=== PATIENT | female | born 1965 | race Caucasian/White ===

== ENCOUNTER 2019-12-19 13:56 | Emergency (ER) | payer OTHER ==
[2019-12-19 14:08] VITALS: BP 142/84; PULSE 79; O2SAT 98
--- NOTE | 2019-12-19 14:24 | ERPHSYRPT ---
- History of Present Illness Time Seen by Provider: 12/19/19 14:10 Source: patient Exam Limitations: no limitations Patient Subjective Stated Complaint: Pt states "I was feeding my dogs and I bent over to rocha his bowl and kept on going, my last two fingers on my right hand bent backwars and now I can barely make a fist." Triage Nursing Assessment: Pt presented alert and oriented X 3, skin pwd Pt ambulates with an upright steady gait, able to speak in clear full sentences pt in no apparent respiratory distress. Pt 3rd and 4th digit on right hand tender to touch. Physician History: Patient is a 54-year-old female presents to our ED with complaints of pain to her fourth and fifth MCP. Patient was feeling her dog dogs water ball when she stretched her hand out to support herself and hyperextended her fourth and fifth digits. Patient has a history of right wrist fusion. Patient's pain described as an ache that is well localized. No radiation. Pain rated 6 out of 10. Patient declined pain medication. Occurred: just prior to arrival Method of Injury: unknown Quality: constant Severity of Pain-Max: moderate Severity of Pain-Current: mild Extremities Pain Location: hand: right Modifying Factors: Improves With: movement Associated Symptoms: none Allergies/Adverse Reactions: sitagliptin [From Januvia] Allergy (Intermediate, Verified 12/19/19 14:10) Itching aspirin Allergy (Verified 10/21/15 02:46) ceftriaxone sodium [From Rocephin] Allergy (Verified 10/21/15 02:47) Latex, Natural Rubber Allergy (Verified 10/21/15 02:46) morphine Allergy (Verified 10/21/15 02:47) Sulfa (Sulfonamide Antibiotics) Allergy (Verified 10/21/15 02:47) metformin Adverse Reaction (Mild, Verified 12/19/19 14:10) Diarrhea steroids Adverse Reaction (Uncoded 10/21/15 02:46) Home Medications: Calcium 1,250 mg PO DAILY 10/21/15 [History] Levothyroxine Sodium 125 mg PO DAILY 10/21/15 [History] Armstrong-3 Fatty Acids/Fish Oil [Fish Oil 1,000 mg Softgel] 1 tab PO TID 10/21/15 [History] Pravastatin Sodium 40 mg PO DAILY 10/21/15 [History] Ranitidine HCl 300 mg PO DAILY 10/21/15 [History] lisinopriL [Lisinopril] 20 mg PO DAILY 10/21/15 [History] Hx Tetanus, Diphtheria Vaccination/Date Given: Yes Hx Influenza Vaccination/Date Given: No Hx Pneumococcal Vaccination/Date Given: No Immunizations Up to Date: Yes Travel Risk - International Travel Have you traveled outside of the country in past 3 weeks: No - Coronavirus Screening Are you exhibiting any of the following symptoms?: No Close contact with a COVID-19 positive Pt in past 14-21 Days: No - Review of Systems Constitutional: No Symptoms, No Fever, No Chills Eyes: No Symptoms Ears, Nose, & Throat: No Symptoms Respiratory: No Symptoms, No Cough, No Dyspnea Cardiac: No Symptoms, No Chest Pain, No Edema, No Syncope Abdominal/Gastrointestinal: No Symptoms, No Abdominal Pain, No Nausea, No Vomiting, No Diarrhea Genitourinary Symptoms: No Symptoms, No Dysuria Musculoskeletal: No Symptoms, No Back Pain, No Neck Pain Skin: No Symptoms, No Rash Neurological: No Symptoms, No Dizziness, No Focal Weakness, No Sensory Changes Psychological: No Symptoms Endocrine: No Symptoms Hematologic/Lymphatic: No Symptoms Immunological/Allergic: No Symptoms All Other Systems: Reviewed and Negative - Past Medical History Pertinent Past Medical History: Yes Neurological History: Other Cardiac History: High Cholesterol, Hypertension Respiratory History: Asthma, Sleep Apnea Endocrine Medical History: Diabetes Type II, Hypothyroidism, Thyroid Cancer Musculoskeletal History: Fractures, Other Other Medical History: Brittle Bone Syndrome, Thyroid cancer (s/p total removal), Essential Tremors (brain stimulator placement August 2018), awaiting delivery of CPAP - Past Surgical History Past Surgical History: Yes Other Surgical History: right hand surgery laparaoscopy folow by exploratory with colostomy then reversal due to peritonitis - Social History Smoking Status: Current every day smoker How long have you smoked: years Exposure to second hand smoke: Yes Drug Use: none Patient Lives Alone: No - Female History Hx Now: No - Nursing Vital Signs Nursing Vital Signs: Initial Vital Signs Temperature 98.2 F 12/19/19 14:02 Pulse Rate 79 12/19/19 14:02 Respiratory Rate 20 12/19/19 14:02 Blood Pressure 142/84 12/19/19 14:02 O2 Sat by Pulse Oximetry 98 12/19/19 14:02 Pain Scale Pain Intensity 6 - Physical Exam General Appearance: no apparent distress, alert Eyes, Ears, Nose, Throat Exam: moist mucous membranes Neck Exam: non-tender, supple Cardiovascular/Respiratory Exam: chest non-tender, normal breath sounds, regular rate/rhythm, no respiratory distress Abdominal Exam: non-tender, No guarding Back Exam: normal inspection, No vertebral tenderness Shoulder Exam: normal inspection Elbow/Forearm Exam: normal inspection Wrist Exam: normal inspection (Well-healed scar from previous wrist fusion. No wrist pain.) Hand Exam: normal inspection, bone tenderness (Tenderness to palpation over fourth and fifth MCP of right hand.), No nail injury (Pain at right 4th and 5th MCP upon passive extension flexion.) Neuro/Tendon Exam: normal sensation, normal motor functions Mental Status Exam: alert, oriented x 3, cooperative Skin Exam: normal color, warm, dry SpO2 Interpretation: normal SpO2: 98 O2 Delivery: Room Air - Course Nursing assessment & vital signs reviewed: Yes - Radiology Exams Hand X-ray Interpretation: Interpreted by me (Wrist is fused. No fractures or dislocations.) Ordered Tests: Active Orders 24 hr Category Date Time Status HAND (MINIMUM 3 VIEWS) Stat Exams 12/19/19 14:12 Taken - Progress Progress: improved Progress Note: 12/19/19 15:38 Patient reassessed. Pain improved although she did not receive pain medication. Patient declined pain medication. X-ray shows a fused wrist. No fractures or dislocations observed. We will discharge patient home. Right wrist provided per patient request. Patient agrees to follow-up with her primary care doctor within 48 hours for reevaluation. 12/19/19 15:42 Counseled pt/family regarding: diagnosis, need for follow-up, rad results - Departure Departure Disposition: Home Clinical Impression: Hand sprain Condition: Stable Critical Care Time: No Referrals: TEODORO PEDRAZA [Primary Care Provider] - Additional Instructions: Discharge/Care Plan MARYJO BOOTHE was seen on 12/19/19 in the Emergency Room. The patient was counseled regarding Diagnosis,Lab results, Imaging studies, need for follow up and when to return to the Emergency Room. Prescriptions given: Discharge Note I have spoken with the patient and/or caregivers. I have explained the patient's condition, diagnosis and treatment plan based on the information available to me at this time. I have answered the patient's and/or caregiver's questions and addressed any concerns. The patient and/or caregivers have as good understanding of the patient's diagnosis, condition and treatment plan as can be expected at this point. The vital signs have been stable. The patient's condition is stable and appropriate for discharge from the emergency department. The patient will pursue further outpatient evaluation with the primary care physician or other designated or consulting physician as outlined in the discharge instructions. The patient and/or caregivers are agreeable to this plan of care and follow-up instructions have been explained in detail. The patient and/or caregivers have received these instruction. The patient/and or caregivers are aware that any significant change in condition or worsening of symptoms should prompt an immediate return to this or the closest emergency department or call 911.
--- NOTE | 2019-12-21 08:41 | XRAY ---
Indication: 5th finger pain following fall. Comparison: None 3 view right hand demonstrates radiocarpal metacarpal fusion, old distal 5th metacarpal fracture, and punctate foreign body tip 4th finger. Tiny ulnar styloid tip ossification either developmental or old nonunited fracture. No other bony, articular, or soft tissue abnormalities.
== END 2019-12-19 15:51 | disposition home or self-care (01) ==
LOC: ED 13:56
DX: S63.91XA Sprain of unspecified part of right wrist and hand, initial encounter (principal); W01.198A Fall on same level from slipping, tripping and stumbling with subsequent striking against other object, initial encounter
CPT/HCPCS: 73130; 99283; L3908

== ENCOUNTER 2023-09-22 20:05 | Emergency (ER) | payer OTHER ==
--- NOTE | 2023-09-22 20:18 | ERPHSYRPT ---
- History of Present Illness Time Seen by Provider: 09/22/23 20:16 Source: patient Exam Limitations: no limitations Physician History: 57-year-old female presents to our ED with pain to her right hand. Patient fell 2 days ago. Patient states she bumped her right hand into a door today. She is experiencing some pain at the knuckle. No other injuries reported. Pain described as an ache that is localized. No radiation. Pain worse with movement and palpation. Pain improved with rest. Patient denies any other complaints at this time. The fall was mechanical and not associated with any neuro cardiovascular symptomology. No chest pain or shortness of breath. No nausea vomiting diaphoresis. No numbness tingling or weakness. Portions of this note were created with voice recognition technology. There may be grammatical, spelling, punctuation or sound alike errors Timing/Duration: day(s) (2 days ago) Severity: moderate Modifying Factors: Improves With: movement Associated Symptoms: denies symptoms Allergies/Adverse Reactions: sitagliptin [From Januvia] Allergy (Intermediate, Verified 09/22/23 20:10) Itching aspirin Allergy (Verified 09/22/23 20:10) ceftriaxone sodium [From Rocephin] Allergy (Verified 09/22/23 20:10) Latex, Natural Rubber Allergy (Verified 09/22/23 20:10) morphine Allergy (Verified 09/22/23 20:10) Sulfa (Sulfonamide Antibiotics) Allergy (Verified 09/22/23 20:10) metformin Adverse Reaction (Mild, Verified 09/22/23 20:10) Diarrhea steroids Adverse Reaction (Uncoded 09/22/23 20:10) Home Medications: Calcium 1,250 mg PO DAILY 10/21/15 [History] Levothyroxine Sodium 200 mg PO DAILY 10/21/15 [History] Pravastatin Sodium 40 mg PO DAILY 10/21/15 [History] lisinopriL [Lisinopril] 10 mg PO DAILY 10/21/15 [History] Dapagliflozin Propanediol [Farxiga] 10 mg PO DAILY 09/22/23 [History] Famotidine 40 mg PO DAILY 09/22/23 [History] Levothyroxine Sodium 25 mcg PO UD 09/22/23 [History] Omeprazole 40 mg PO DAILY 09/22/23 [History] Semaglutide [Ozempic] 0.25 mg SQ WEEKLY 09/22/23 [History] Hx Tetanus, Diphtheria Vaccination/Date Given: Yes Hx Influenza Vaccination/Date Given: No Hx Pneumococcal Vaccination/Date Given: No - Review of Systems Constitutional: No Symptoms, No Fever, No Chills Eyes: No Symptoms Ears, Nose, & Throat: No Symptoms Respiratory: No Symptoms, No Cough, No Dyspnea Cardiac: No Symptoms, No Chest Pain, No Edema, No Syncope Abdominal/Gastrointestinal: No Symptoms, No Abdominal Pain, No Nausea, No Vomiting, No Diarrhea Genitourinary Symptoms: No Symptoms, No Dysuria Musculoskeletal: No Symptoms, No Back Pain, No Neck Pain Skin: No Symptoms, No Rash Neurological: No Symptoms, No Dizziness, No Focal Weakness, No Sensory Changes Psychological: No Symptoms Endocrine: No Symptoms Hematologic/Lymphatic: No Symptoms Immunological/Allergic: No Symptoms All Other Systems: Reviewed and Negative - Past Medical History Pertinent Past Medical History: Yes Neurological History: Other Cardiac History: High Cholesterol, Hypertension Respiratory History: Asthma, Sleep Apnea Endocrine Medical History: Diabetes Type II, Hypothyroidism, Thyroid Cancer Musculoskeletal History: Fractures, Other Other Medical History: Brittle Bone Syndrome, Thyroid cancer (s/p total removal), Essential Tremors (brain stimulator placement August 2018), awaiting delivery of CPAP - Past Surgical History Past Surgical History: Yes Other Surgical History: right hand surgery laparaoscopy folow by exploratory with colostomy then reversal due to peritonitis - Social History Smoking Status: Current every day smoker How long have you smoked: years Exposure to second hand smoke: Yes Drug Use: none Patient Lives Alone: No - Nursing Vital Signs Nursing Vital Signs: Initial Vital Signs Temperature 98.4 F 09/22/23 20:10 Pulse Rate 96 H 09/22/23 20:10 Respiratory Rate 18 09/22/23 20:10 Blood Pressure 135/85 09/22/23 20:10 O2 Sat by Pulse Oximetry 97 09/22/23 20:10 Pain Scale Pain Intensity 8 - Physical Exam General Appearance: no apparent distress, alert Eye Exam: PERRL/EOMI, eyes nml inspection Ears, Nose, Throat Exam: normal ENT inspection, TMs normal, pharynx normal, moist mucous membranes Neck Exam: normal inspection, non-tender, supple, full range of motion Respiratory Exam: normal breath sounds, lungs clear, No respiratory distress Cardiovascular Exam: regular rate/rhythm, normal heart sounds, normal peripheral pulses Gastrointestinal/Abdomen Exam: soft, normal bowel sounds, No tenderness, No mass Back Exam: normal inspection, normal range of motion, No CVA tenderness, No vertebral tenderness Extremity Exam: normal inspection, normal range of motion, pelvis stable, other (Some swelling over the right fourth MCP. The involved extremities neurovascular tact distally compartments are soft cap refill less than 2 seconds. No open or draining lesions. No other areas of tenderness along the involved extremity joints.) Neurologic Exam: alert, oriented x 3, cooperative, normal mood/affect, nml cerebellar function, nml station & gait, sensation nml, No motor deficits Skin Exam: normal color, warm, dry, No rash Lymphatic Exam: No adenopathy SpO2 Interpretation: normal SpO2: 97 O2 Delivery: Room Air - Course Nursing assessment & vital signs reviewed: Yes - Radiology Exams Hand X-ray Interpretation: Interpreted by me (No fracture or dislocation. No soft tissue abnormalities.) Ordered Tests: Active Orders 24 hr Category Date Time Status HAND (MINIMUM 3 VIEWS) Stat Exams 09/22/23 20:16 Taken Medication Summary Discontinued Medications Generic Name Dose Route Start Last Admin Trade Name Andreq PRN Reason Stop Dose Admin Acetaminophen 975 mg 09/22/23 20:16 09/22/23 20:28 Acetaminophen 325 Mg Tablet PO 09/22/23 20:17 975 mg STAT ONE Administration Acetaminophen Confirm 09/22/23 20:20 Acetaminophen 325 Mg Tablet Administered 09/22/23 20:21 Dose 975 mg .ROUTE .STK-MED ONE - Progress Progress: improved Progress Note: 57-year-old female presents to our ED with right hand pain. Pain started 2 days ago after a fall. Physical exam reveals swelling near the fourth MCP. Overlying soft tissue intact. The involved extremities neurovascular intact distally compartments are soft cap refill less than 2 seconds. X-ray negative for fracture dislocation. There is evidence of a fused wrist. Patient received Tylenol for pain control. Patient allergic to NSAIDs. Ice pack applied. Patient received a wrist splint and a referral to orthopedic clinic. Patient feels well and states he is ready for discharge. She voices no other complaints or concerns at this time. Portions of this note were created with voice recognition technology. There may be grammatical, spelling, punctuation or sound alike errors Complexity problem addressed is moderate. No critical care time. Complex of data reviewed and analyzed is moderate. Dr. Adams independently reviewed the x-ray of the right hand. Risk of complication and or risk morbidity/mortality of patient management is low. Vital stable. Time spent to discharge patient is approximately 10 minutes. [facility] n of care established for shared decision making. No social determinants of health present impede follow-up. Portions of this note were created with voice recognition technology. There may be grammatical, spelling, punctuation or sound alike errors 09/22/23 20:42 Counseled pt/family regarding: diagnosis, need for follow-up, rad results - Departure Departure Disposition: Home Clinical Impression: Fall, Hand contusion Condition: Stable Critical Care Time: No Referrals: MARYJO WEBSTER MD [Primary Care Provider] - Follow up/PCP as directed Additional Instructions: Discharge/Care Plan MARYJO BOOTHE was seen on 09/22/23 in the Emergency Room. The patient was counseled regarding Diagnosis,Lab results, Imaging studies, need for follow up and when to return to the Emergency Room. Prescriptions given: Discharge Note I have spoken with the patient and/or caregivers. I have explained the patient's condition, diagnosis and treatment plan based on the information available to me at this time. I have answered the patient's and/or caregiver's questions and addressed any concerns. The patient and/or caregivers have as good understanding of the patient's diagnosis, condition and treatment plan as can be expected at this point. The vital signs have been stable. The patient's condition is stable and appropriate for discharge from the emergency department. The patient will pursue further outpatient evaluation with the primary care physician or other designated or consulting physician as outlined in the discharge instructions. The patient and/or caregivers are agreeable to this plan of care and follow-up instructions have been explained in detail. The patient and/or caregivers have received these instruction. The patient/and or caregivers are aware that any significant change in condition or worsening of symptoms should prompt an immediate return to this or the closest emergency department or call 911. Outpatient Orders: Ortho Referral Time Frame: 1 Day, Facility: [facility] Hosp, Location: [facility]
[2023-09-22 20:20] VITALS: TEMP 98.4
[2023-09-22] MEDS ORDERED: TYLENOL 325 MG ONE (20:20)
[2023-09-22] MEDS: TYLENOL 325 MG PO ONE (20:28)
[2023-09-22 20:49] VITALS: BP 119/84; PULSE 85; RESP 22; O2SAT 94
--- NOTE | 2023-09-23 08:56 | XRAY ---
Indication: Pain following fall. Comparison: December 19, 2019 3 view right hand unchanged again demonstrating radiocarpal metacarpal fusion, old distal 5th metacarpal fracture, tiny ulnar styloid tip heterotopic ossification, and punctate foreign body tuft 4th finger. No new/acute bony, articular, or soft tissue abnormalities.
== END 2023-09-22 20:50 | disposition home or self-care (01) ==
LOC: ED 20:05
DX: S60.221A Contusion of right hand, initial encounter (principal); W19.XXXA Unspecified fall, initial encounter; E78.5 Hyperlipidemia, unspecified; I10 Essential (primary) hypertension; E11.9 Type 2 diabetes mellitus without complications; Z79.84 Long term (current) use of oral hypoglycemic drugs; Z79.85 Long-term (current) use of injectable non-insulin antidiabetic drugs; Z79.899 Other long term (current) drug therapy; Z72.0 Tobacco use
CPT/HCPCS: 73130; 99283; L3908; A9270-GY